=== PATIENT | male | born 1975 | race Caucasian/White ===

== ENCOUNTER 2016-05-26 11:47 | Emergency (ER) | payer OTHER ==
[~2016-05-26] VITALS: Ht 188 cm; Wt 115.0 kg
[~2016-05-26 11:47] MED LIST: DIAZ5 PO; DICL75 PO; HYDR-3533 PO; LORTA5 PO
[2016-05-26 11:50] VITALS: BP 107/70; PULSE 88; RESP 18; TEMP 97.6; O2SAT 97
[2016-05-26] MEDS ORDERED: SODIUM CHLOR 0.9% 1000 ML INJ 1,000 ML IV SCH (11:55)
[2016-05-26 11:56] VITALS: BP 116/74; PULSE 76; RESP 22; TEMP 97.9; O2SAT 97
[2016-05-26] MEDS ORDERED: ONDANSETRON HCL 4 MG/2 ML VIAL IVP ONE (12:00)
[2016-05-26] MEDS ORDERED: HYDROmorphone HCL PF 1 MG/ML VIAL IVS ONE (12:00)
[2016-05-26] MEDS ORDERED: SODIUM CHLORIDE 0.9% FLUSH 5 ML FLUSH IVF PRN (12:00)
[2016-05-26 12:01] VITALS: RESP 22; O2SAT 98
[2016-05-26 12:18] LABS: AUTOMATED NEUTROPHIL # 3.2 TH/MM3 (1.8-7.7); BASOPHIL % 0.4 % (0.0-2.0); EOSINOPHIL # 0.1 TH/MM3 (0-0.4); EOSINOPHIL % 1.4 % (0.0-4.0); HEMATOCRIT 40.2 % (39.0-51.0); HEMO FLAGS DIFF FINAL; LYMPH % 22.1 % (9.0-44.0); LYMPHOCYTE # 1.1 TH/MM3 (1.0-4.8); MEAN CELL VOLUME 90.2 FL (80.0-100.0); MEAN CORPUSCULAR HEMOGLOBIN 30.8 PG (27.0-34.0); MEAN CORPUSCULAR HGB CONC 34.2 % (32.0-36.0); MONO % 11.2 % (0.0-8.0); NEUT % 64.9 % (16.0-70.0); PLATELET COUNT 231 TH/MM3 (150-450); RED BLOOD COUNT 4.46 MIL/MM3 (4.50-5.90); RED CELL DISTRIBUTION WIDTH 14.3 % (11.6-17.2)
[2016-05-26 12:27] LABS: APTT (PATIENT) 25.1 SEC (24.3-30.1); PROTHROMBIN TIME - PATIENT 10.8 SEC (9.8-11.6)
[2016-05-26 12:30] LABS: ALT (GPT) 71 U/L (12-78); ANION GAP 8 MEQ/L (5-15); AST (GOT) 35 U/L (15-37); BICARBONATE 26.8 MEQ/L (21.0-32.0); BLOOD UREA NITROGEN 8 MG/DL (7-18); CHLORIDE 106 MEQ/L (98-107); GLOMERULAR FILTRATION RATE 98 ML/MIN (>89); POTASSIUM 3.9 MEQ/L (3.5-5.1); SODIUM (NA) 141 MEQ/L (136-145)
[2016-05-26] MEDS ORDERED: HYDROmorphone HCL PF 2 MG/ML VIAL IV PUSH ONE (12:30)
[2016-05-26 12:33] LABS: ALKALINE PHOSPHATASE 99 U/L (45-117); TOTAL BILIRUBIN ADULT 0.7 MG/DL (0.2-1.0)
--- NOTE | 2016-05-26 12:33 | RADRPT ---
EXAM DATE/TIME: 05/26/2016 12:22 [facility] COMPARISON: No previous studies available for comparison. INDICATIONS : Chest Pain after falling off of horse. MEDICAL HISTORY : None. SURGICAL HISTORY : None. ENCOUNTER: Initial ACUITY: 1 day PAIN SCORE: 10/10 LOCATION: Bilateral chest FINDINGS: A single view of the chest demonstrates the lungs to be symmetrically aerated without evidence of mas s, infiltrate or effusion. The cardiomediastinal contours are unremarkable. Osseous structures are intact. CONCLUSION: No acute abnormality demonstrated. Sukhjinder Jacob MD on May 26, 2016 at 12:31 Board Certified Radiologist. This report was verified electronically.
--- NOTE | 2016-05-26 12:35 | RADRPT ---
EXAM DATE/TIME: 05/26/2016 12:26 [facility] COMPARISON: CHEST PA & LAT, April 01, 2015, 6:05. INDICATIONS : Left Shoulder pain after falling off of horse. MEDICAL HISTORY : None. SURGICAL HISTORY : None. ENCOUNTER: Initial ACUITY: 1 day PAIN SCORE: 9/10 LOCATION: Left Shoulder. FINDINGS: There is about three quarters shaft width of elevation of the clavicle with respect to the acromion. This does appear to be new relative to the 2 view chest x-ray done back in 2015. No fracture demonstr ated. CONCLUSION: Mild acromioclavicular joint separation without fracture. Sukhjinder Jacob MD on May 26, 2016 at 12:32 Board Certified Radiologist. This report was verified electronically.
[2016-05-26] MEDS ORDERED: IOHEXOL 350 MG/ML 10 ML VIAL (for RAD DIAG) IV ONE (13:52)
[2016-05-26 13:55] VITALS: BP 113/71; PULSE 77; RESP 15; O2SAT 98
--- NOTE | 2016-05-26 13:56 | RADRPT ---
EXAM DATE/TIME: 05/26/2016 12:53 [facility] COMPARISON: CT BRAIN W/O CONTRAST, March 30, 2015, 22:31. INDICATIONS : Trauma; fall from horse, head and neck pain. RADIATION DOSE: 56.35 CTDIvol (mGy) MEDICAL HISTORY : None SURGICAL HISTORY : None. ENCOUNTER: Initial ACUITY: 1 day PAIN SCALE: 4/10 LOCATION: Bilateral cranial TECHNIQUE: Multiple contiguous axial images were obtained of the head. Using automated exposure control and adj ustment of the mA and/or kV according to patient size, radiation dose was kept as low as reasonably a chievable to obtain optimal diagnostic quality images. FINDINGS: CEREBRUM: The ventricles are normal for age. No evidence of midline shift, mass lesion, hemorrhage or acute in farction. No extra-axial fluid collections are seen. POSTERIOR FOSSA: The cerebellum and brainstem are intact. The 4th ventricle is midline. The cerebellopontine angle i s unremarkable. EXTRACRANIAL: The visualized portion of the orbits is intact. SKULL: The calvaria is intact. No evidence of skull fracture. CONCLUSION: No bleed or other acute intracranial abnormality. Sukhjinder Jacob MD on May 26, 2016 at 13:54 Board Certified Radiologist. This report was verified electronically.
--- NOTE | 2016-05-26 13:58 | RADRPT ---
EXAM DATE/TIME: 05/26/2016 13:01 [facility] COMPARISON: CT CERVICAL SPINE W/O CONTRAST, March 30, 2015, 22:31. INDICATIONS : Trauma; fell from horse, neck pain. RADIATION DOSE: 45.53 CTDIvol (mGy) MEDICAL HISTORY : None SURGICAL HISTORY : None. ENCOUNTER: Initial ACUITY: 1 day PAIN SCALE: 8/10 LOCATION: neck TECHNIQUE: Volumetric scanning of the cervical spine was performed. Multiplanar reconstructions in the sagittal, coronal and oblique axial planes were performed. Using automated exposure control and adjustment o f the mA and/or kV according to patient size, radiation dose was kept as low as reasonably achievable to obtain optimal diagnostic quality images. FINDINGS: Cervical spine alignment is normal. Vertebral bodies have normal height. No cortical break or trabecu lar disruption demonstrated. 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 Moderate disc space narrowing with uncovertebral and facet osteoarthritis again seen at C5/C6. CONCLUSION: No fracture or subluxation of the cervical spine. Sukhjinder Jacob MD on May 26, 2016 at 13:55 Board Certified Radiologist. This report was verified electronically.
--- NOTE | 2016-05-26 14:10 | RADRPT ---
EXAM DATE/TIME: 05/26/2016 13:08 [facility] COMPARISON: CT THORAX W CONTRAST, March 30, 2015, 22:41. INDICATIONS : Trauma; fell from horse. IV CONTRAST: 100 cc Omnipaque 350 (iohexol) IV ; Cumulative dose for multiple exams. RADIATION DOSE: 12.90 CTDIvol (mGy) ; Combined studies - Thorax/Abdomen/Pelvis MEDICAL HISTORY : None SURGICAL HISTORY : None. ENCOUNTER: Initial ACUITY: 1 day PAIN SCALE: 4/10 LOCATION: chest TECHNIQUE: Volumetric scanning of the chest was performed. Using automated exposure control and adjustment of t he mA and/or kV according to patient size, radiation dose was kept as low as reasonably achievable to obtain optimal diagnostic quality images. FINDINGS: LUNGS: There is no consolidation or pneumothorax. No concerning pulmonary nodule is visualized. PLEURA: There is no pleural thickening or pleural effusion. MEDIASTINUM: The heart and great vessels demonstrate no acute abnormality. There is no mediastinal or hilar lymph adenopathy. AXILLAE: Within normal limits. No lymphadenopathy. SKELETAL: Within normal limits for patient age. MISCELLANEOUS: The visualized upper abdominal organs demonstrate no acute abnormality. CONCLUSION: No acute abnormality demonstrated. Sukhjinder Jacob MD on May 26, 2016 at 14:07 Board Certified Radiologist. This report was verified electronically.
--- NOTE | 2016-05-26 14:25 | RADRPT ---
EXAM DATE/TIME: 05/26/2016 13:08 [facility] COMPARISON: CT ABDOMEN & PELVIS W CONTRAST, March 30, 2015, 22:41. INDICATIONS : Trauma; fall from horse. IV CONTRAST: 100 cc Omnipaque 350 (iohexol) IV ; Cumulative dose for multiple exams. ORAL CONTRAST: No oral contrast ingested. RADIATION DOSE: 12.90 CTDIvol (mGy) ; Combined studies - Thorax/Abdomen/Pelvis MEDICAL HISTORY : None SURGICAL HISTORY : None. ENCOUNTER: Initial ACUITY: 1 day PAIN SCALE: 0/10 LOCATION: abdomen. TECHNIQUE: Volumetric scanning of the abdomen and pelvis was performed. Using automated exposure control and ad justment of the mA and/or kV according to patient size, radiation dose was kept as low as reasonably achievable to obtain optimal diagnostic quality images. FINDINGS: LOWER LUNGS: The visualized lower lungs are clear. LIVER: Homogeneous density without lesion. There is no dilation of the biliary tree. No calcified gallston es. SPLEEN: Mildly enlarged at about 14 cm anterior to posterior. PANCREAS: Within normal limits. KIDNEYS: Normal in size and shape. There is no mass, stone or hydronephrosis. ADRENAL GLANDS: Within normal limits. VASCULAR: There is no aortic aneurysm. BOWEL/MESENTERY: The stomach, small bowel, and colon demonstrate no acute abnormality. There is no free intraperitone al air or fluid. ABDOMINAL WALL: Within normal limits. RETROPERITONEUM: There is no lymphadenopathy. BLADDER: No wall thickening or mass. REPRODUCTIVE: Within normal limits. INGUINAL: There is no lymphadenopathy or hernia. MUSCULOSKELETAL: Visualized osseous structures are intact. Stable benign bone island at the base of the lesser trochan ter of the right femur. CONCLUSION: No visceral organ injury or other acute abnormality. Sukhjinder Jacob MD on May 26, 2016 at 14:21 Board Certified Radiologist. This report was verified electronically.
--- NOTE | 2016-05-26 14:36 | RADRPT ---
EXAM DATE/TIME: 05/26/2016 13:08 [facility] COMPARISON: No previous studies available for comparison. INDICATIONS : Trauma; fall from horse. RADIATION DOSE: ; Reconstructed from previous dataset MEDICAL HISTORY : None SURGICAL HISTORY : None. ENCOUNTER: Initial ACUITY: 1 day PAIN SCALE: 7/10 LOCATION: spine. TECHNIQUE: Volumetric scanning of the thoracic spine was performed. Multiplanar reconstructions in the sagittal , coronal and oblique axial planes were performed. Using automated exposure control and adjustment o f the mA and/or kV according to patient size, radiation dose was kept as low as reasonably achievable to obtain optimal diagnostic quality images. FINDINGS: The vertebral bodies of the thoracic spine are in normal alignment without evidence of subluxation. Vertebral body height is maintained. No fractures are seen. Thoracic kyphosis is mildly exaggerated. T1-T2: Normal. T2-T3: The thecal sac has a normal diameter. No evidence of disc bulge or protrusion. T3-T4: Mild disc space narrowing anteriorly. T4-T5: Mild disc space narrowing anteriorly. T5-T6: Mild disc space narrowing anteriorly. T6-T7: The thecal sac has a normal diameter. No evidence of disc bulge or protrusion. T7-T8: The thecal sac has a normal diameter. No evidence of disc bulge or protrusion. T8-T9: The thecal sac has a normal diameter. No evidence of disc bulge or protrusion. T9-T10: The thecal sac has a normal diameter. No evidence of disc bulge or protrusion. Mild facet and costov ertebral degenerative changes. T10-T11: The thecal sac has a normal diameter. No evidence of disc bulge or protrusion. Mild facet and costov ertebral degenerative changes. T11-T12: The thecal sac has a normal diameter. No evidence of disc bulge or protrusion. Mild facet and costov ertebral degenerative changes. T12-L1: The thecal sac has a normal diameter. No evidence of disc bulge or protrusion. CONCLUSION: No fracture, subluxation or other acute abnormality. Mild degenerative changes with exaggeration of t he thoracic kyphosis. Sukhjinder Jacob MD on May 26, 2016 at 14:33 Board Certified Radiologist. This report was verified electronically.
--- NOTE | 2016-05-26 14:45 | RADRPT ---
EXAM DATE/TIME: 05/26/2016 13:08 [facility] COMPARISON: No previous studies available for comparison. INDICATIONS : Trauma; fall from horse, lower back pain. RADIATION DOSE: ; Reconstructed from previous dataset MEDICAL HISTORY : None SURGICAL HISTORY : None. ENCOUNTER: Initial ACUITY: 1 day PAIN SCALE: 6/10 LOCATION: lower back. TECHNIQUE: Volumetric scanning of the lumbar spine was performed. Multiplanar reconstructions in the sagittal, coronal and oblique axial planes were performed. Using automated exposure control and adjustment of the mA and/or kV according to patient size, radiation dose was kept as low as reasonably achievable t o obtain optimal diagnostic quality images. FINDINGS: Lumbar spinal alignment is normal. No fracture seen. Vertebral bodies have normal height. Mild disc space narrowing and a moderate-sized left paracentral disc protrusion present at L2/L3 whic h causes narrowing of the left lateral recess. Small, broad posterior disc osteophyte complexes at L4/L5 and L5/S1 with mild bilateral facet osteoar thritis and mild bilateral foraminal encroachment. CONCLUSION: 1. No fracture or subluxation of the lumbar spine. 2. Age-indeterminate left paracentral disc protrusion at L2/L3 probably impinging on the transiting l eft L3 nerve root. 3. Chronic appearing degenerative changes at other levels without significant foraminal or spinal karla nosis. Sukhjinder Jacob MD on May 26, 2016 at 14:39 Board Certified Radiologist. This report was verified electronically.
[2016-05-26] MEDS ORDERED: PERC10TA27 PO (15:07)
--- NOTE | 2016-05-26 15:07 | PD ---
HPI Chief Complaint: Fall Time Seen by Provider: 11:55 Travel History International Travel<30 days: No Contact w/Intl Traveler<30days: No Traveled to known affect area: No History of Present Illness HPI Patient 41-year-old male presents emergency department for evaluation of left shoulder pain as well as back pain and thoracic and lumbar regions which is quite excruciating after falling off a horse today. Patient states the horse reared and he fell backwards impacting his left shoulder and head. Patient's chief complaint is left shoulder pain. Denies any loss of consciousness. He states he thinks he hit his head as well. He is also been complaining of some pain in his abdomen which is mild and difficult for him to describe better. Denies any nausea vomiting diarrhea. Has not taken anything prior to arrival has been walking since the fall. Denies any focal weakness denies any saddle anesthesia. PFSH Past Medical History Arthritis: Yes (lower back, r shoulder) Cancer: No Cardiovascular Problems: No Endocrine: No Gastrointestinal Disorders: No Genitourinary: No Immune Disorder: No Implanted Vascular Access Dvce: Yes Musculoskeletal: Yes Neurologic: No Psychiatric: No Reproductive: No Respiratory: No Tetanus Vaccination: Never Vaccinated Influenza Vaccination: No Past Surgical History Body Medical Devices: wires in hand Other Surgery: Yes Social History Alcohol Use: Yes (OCC) Tobacco Use: No Substance Use: No Allergies-Medications (Allergen,Severity, Reaction): Coded Allergies: No Known Allergies (Unverified , 03/30/15) Reported Meds & Prescriptions Reported Meds & Active Scripts Active Phenergan (Promethazine HCl) 25 Mg Tab 25 Mg PO ONCE Percocet (Oxycodone-Acetaminophen) 10-325 mg Tab 1 Tab PO Q6H PRN Lortab 5 mg/325 mg (Hydrocodone/Acetaminophen 5 mg/325 mg) 1 Tab 1 Tab PO Q6H PRN Valium (Diazepam) 5 Mg Tab 5 Mg PO TID PRN Diclofenac Sodium Dr (Diclofenac Sod) 75 Mg Tab 75 Mg PO BID PRN Hydrocodone/Acetaminophen 5 mg/325 mg 1 Tab Tab 1 Tab PO Q4H PRN Review of Systems Except as stated in HPI: all other systems reviewed are Neg Physical Exam Narrative GENERAL: Well-developed well-nourished, appears quite painful. ABCs are intact. SKIN: Warm and dry. HEAD: Atraumatic. Normocephalic. EYES: Pupils equal and round. No scleral icterus. No injection or drainage. ENT: No nasal bleeding or discharge. Mucous membranes pink and moist. NECK: Trachea midline. No JVD. CARDIOVASCULAR: Regular rate and rhythm. No murmur appreciated. RESPIRATORY: No accessory muscle use. Clear to auscultation. Breath sounds equal bilaterally. GASTROINTESTINAL: Abdomen soft, non-tender, nondistended. Hepatic and splenic margins not palpable. MUSCULOSKELETAL: No obvious deformities. No clubbing. No cyanosis. No edema. Left upper extremity; patient has obvious tenting of the clavicle over the before meals joint and a probable high degree separation. Humerus is well seated in the glenoid fossa. No tenderness at the elbow, no tenderness of the wrists or hands. Full range of motion in the elbow wrist and hand. Pulses motor and sensory intact distally. Extremely limited range of motion of the left shoulder secondary to pain. No gross deformities of the humerus elbow forearm wrist or hand. Right upper extremity; no gross deformities there is no tenderness at the shoulder elbow wrist or hand. Pulses motor and sensory intact distally and full nontender range of motion. Lower extremities: no tenderness at the pelvis hips knees and ankles or feet. No gross deformities, pulses motor and sensory intact distal in both lower extremities bilateral equal.: Axial skeleton: No midline tenderness at CT or L-spine. Pelvis is stable. NEUROLOGICAL: Awake and alert. And oriented cranial nerves II through XII are grossly intact nonfocal, 5 out of 5 strength in all 4 extremities., PSYCHIATRIC: Appropriate mood and affect; insight and judgment normal. Data Data Last Documented VS Vital Signs Date Time Temp Pulse Resp B/P Pulse Ox O2 Delivery O2 Flow Rate FiO2 05/26/16 16:22 107/58 97 05/26/16 13:55 77 15 Room Air 05/26/16 11:56 97.9 Orders Shoulder, Limited(2vws) (05/26/16 ) Chest, Single Ap (05/26/16 ) Complete Blood Count With Diff (05/26/16 11:55) Comprehensive Metabolic Panel (05/26/16 11:55) Lipase (05/26/16 11:55) Prothrombin Time / Inr (Pt) (05/26/16 11:55) Act Partial Throm Time (Ptt) (05/26/16 11:55) Urinalysis - C+S If Indicated (05/26/16 11:55) Iv Access Insert/Monitor (05/26/16 11:55) Ecg Monitoring (05/26/16 11:55) Oximetry (05/26/16 11:55) Ondansetron Inj (Zofran Inj) (05/26/16 12:00) Sodium Chlor 0.9% 1000 Ml Inj (Ns 1000 M (05/26/16 11:55) Sodium Chloride 0.9% Flush (Ns Flush) (05/26/16 12:00) Hydromorphone Pf Inj (Dilaudid Pf Inj) (05/26/16 12:00) Ct Brain W/O Iv Contrast(Rout) (05/26/16 ) Ct Cerv Spine W/O Contrast (05/26/16 ) Ct Thorax/ Chest W Iv Contrast (05/26/16 ) Ct Abd/Pel W Iv Contrast(Rout) (05/26/16 ) Ct Lumb Spine W/O Contrast (05/26/16 ) Ct Thor Spine W/O Contrast (05/26/16 ) Hydromorphone Pf Inj (Dilaudid Pf Inj) (05/26/16 12:30) Apply Cervical Collar (05/26/16 12:26) Iohexol 350 Inj (Omnipaque 350 Inj) (05/26/16 13:52) Splint Or Brace Apply/Monitor (05/26/16 15:05) Oxycodone-Acetamin 10-325 Mg (Percocet 1 (05/26/16 15:45) Sling And Swathe (05/26/16 ) Labs Laboratory Tests Test 05/26/16 12:00 White Blood Count 5.0 TH/MM3 Red Blood Count 4.46 MIL/MM3 Hemoglobin 13.8 GM/DL Hematocrit 40.2 % Mean Corpuscular Volume 90.2 FL Mean Corpuscular Hemoglobin 30.8 PG Mean Corpuscular Hemoglobin 34.2 % Concent Red Cell Distribution Width 14.3 % Platelet Count 231 TH/MM3 Mean Platelet Volume 6.8 FL Neutrophils (%) (Auto) 64.9 % Lymphocytes (%) (Auto) 22.1 % Monocytes (%) (Auto) 11.2 % Eosinophils (%) (Auto) 1.4 % Basophils (%) (Auto) 0.4 % Neutrophils # (Auto) 3.2 TH/MM3 Lymphocytes # (Auto) 1.1 TH/MM3 Monocytes # (Auto) 0.6 TH/MM3 Eosinophils # (Auto) 0.1 TH/MM3 Basophils # (Auto) 0.0 TH/MM3 CBC Comment DIFF FINAL Differential Comment Prothrombin Time 10.8 SEC Prothromb Time International 1.0 RATIO Ratio Activated Partial 25.1 SEC Thromboplast Time Sodium Level 141 MEQ/L Potassium Level 3.9 MEQ/L Chloride Level 106 MEQ/L Carbon Dioxide Level 26.8 MEQ/L Anion Gap 8 MEQ/L Blood Urea Nitrogen 8 MG/DL Creatinine 0.86 MG/DL Estimat Glomerular Filtration 98 ML/MIN Rate Random Glucose 93 MG/DL Calcium Level 8.9 MG/DL Total Bilirubin 0.7 MG/DL Aspartate Amino Transf 35 U/L (AST/SGOT) Alanine Aminotransferase 71 U/L (ALT/SGPT) Alkaline Phosphatase 99 U/L Total Protein 7.2 GM/DL Albumin 3.8 GM/DL Lipase 119 U/L MDM Medical Decision Making Medical Screen Exam Complete: Yes Emergency Medical Condition: Yes Differential Diagnosis Before meals separation, C-spine fracture, T-spine fracture, L-spine fracture, intrathoracic injury, intra-abdominal injury. Closed head injury. Narrative Course Patient 41-year-old male presents emergency department for evaluation of left shoulder pain. He clearly has distracting injury which is his before meals separation. He was placed in cervical collar on arrival. Indications for head and C-spine are or obvious. Patient also has some vague complaints of pain when taking a deep breath as well as abdominal pain. The remainder of the nielsen scan is therefore indicated. He appears quite uncomfortable is given a total of 3,000,000 g of Dilaudid IV which significantly controlled his pain. CTs were obtained of his head C-spine chest abdomen pelvis as well as his T and L- spine. 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 Patient's labs are reassuring. His pain is better controlled and he is stable for discharge. He was placed in a sling. Discussed need follow-up with an orthopedic surgeon as he will likely require surgery's I appreciate very high grade before meals separation. Discussed with him return to ED criteria. Diagnosis Primary Impression: Separation of left acromioclavicular joint Qualified Code: S43.102A - Separation of left acromioclavicular joint, initial encounter Referrals: Travon Polk MD Med/Other Pt SpecificInfo: Prescription(s) given Scripts Promethazine (Phenergan)25 Mg Tab25 Mg PO ONCE #1 TAB Ref 0 Prov:Germain Phillips MD 05/26/16 Oxycodone-Acetaminophen (Percocet)10-325 mg Tab1 Tab PO Q6H PRN (PAIN) #20 TAB Ref 0 Prov:Germain Phillips MD 05/26/16 Disposition: 01 DISCHARGE HOME Condition: Stable Germain Phillips MD May 26, 2016 15:07
[2016-05-26] MEDS ORDERED: PROM25TA5 PO (15:15)
[2016-05-26] MEDS ORDERED: oxyCODONE/ACETAMINOPHEN 10 MG/325 MG TAB PO ONE (15:45)
[2016-05-26 16:22] VITALS: BP 107/58
== END 2016-05-26 16:12 | disposition home or self-care (01) ==
LOC: NEPA 11:47
DX: S43.102A Unspecified dislocation of left acromioclavicular joint, initial encounter (principal); V80.010A Animal-rider injured by fall from or being thrown from horse in noncollision accident, initial encounter; Y93.52 Activity, horseback riding; Y92.9 Unspecified place or not applicable
CPT/HCPCS: 70450; 71010; 71260; 72125; 72128; 72131; 73030; 74177; 80053; 83690; 85025; 85610; 85730; 96361; 96374; 96375; 99284; J1170; J2405; J7030; Q9967

== ENCOUNTER 2016-05-28 14:42 | Emergency (ER) | payer OTHER ==
[~2016-05-28] VITALS: Ht 188 cm; Wt 120.0 kg
[~2016-05-28 14:42] MED LIST changes: +PERC10TA27 PO; +PROM25TA5 PO
[2016-05-28 14:48] VITALS: BP 142/84; PULSE 88; RESP 18; TEMP 97.6; O2SAT 97
--- NOTE | 2016-05-28 15:13 | PD ---
HPI . possible pneumothorax Chief Complaint: Respiratory Symptoms Time Seen by Provider: 15:13 Travel History International Travel<30 days: No Contact w/Intl Traveler<30days: No Traveled to known affect area: No History of Present Illness HPI 41-year-old male who was seen 2 days ago status post falling off a horse. Patient was diagnosed with a left AC separation and was scheduled to follow with orthopedic. He was supposed to have surgery, but was told that he has a possible pneumothorax on imaging. Patient is here today complaining of some mild difficulty breathing. He also reports left chest pain extending into his arm. He says the pain is worse with movement. He denies any nausea, vomiting or diaphoresis. He was sent by orthopedic for rule out of pneumothorax. He is accompanied by his and son. PFSH Past Medical History Arthritis: Yes (lower back, r shoulder) Cancer: No Cardiovascular Problems: No Endocrine: No Gastrointestinal Disorders: No Genitourinary: No Immune Disorder: No Implanted Vascular Access Dvce: Yes Musculoskeletal: Yes Neurologic: No Psychiatric: No Reproductive: No Respiratory: No Influenza Vaccination: No Past Surgical History Body Medical Devices: wires in hand Other Surgery: Yes Social History Alcohol Use: Yes ([facility]) Tobacco Use: No Substance Use: No Allergies-Medications (Allergen,Severity, Reaction): Coded Allergies: No Known Allergies (Unverified , 05/28/16) Reported Meds & Prescriptions Reported Meds & Active Scripts Active Phenergan (Promethazine HCl) 25 Mg Tab 25 Mg PO ONCE Percocet (Oxycodone-Acetaminophen) 10-325 mg Tab 1 Tab PO Q6H PRN Review of Systems General / Constitutional: No: Fever Eyes: No: Visual changes HENT: No: Headaches Cardiovascular: No: Chest Pain or Discomfort Respiratory: No: Shortness of Breath Gastrointestinal: No: Abdominal Pain Genitourinary: No: Dysuria Musculoskeletal: Positive: Pain (left shoulder) Skin: No Rash Neurologic: No: Weakness Psychiatric: No: Depression Endocrine: No: Polydipsia Hematologic/Lymphatic: No: Easy Bruising Physical Exam Narrative GENERAL: AAO x 3, no acute distress, Well-nourished, well-developed patient. SKIN: Warm and dry. No visible rashes or bruising. HEAD: Normocephalic and atraumatic. EYES: No scleral icterus. No injection or drainage. EOM intact, PERRLA ENT: No nasal drainage noted. Mucous membranes pink. Airway patent. NECK: Supple, trachea midline. No JVD. CARDIOVASCULAR: Regular rate and rhythm without murmurs, gallops, or rubs. RESPIRATORY: Breath sounds equal bilaterally. No accessory muscle use. No rhonchi or rales. GASTROINTESTINAL: Abdomen soft, non-tender, nondistended. EXTREMITIES: No cyanosis or edema. Left shoulder wrapped and in sling. BACK: Nontender without obvious deformity. No CVA tenderness. PSYCH: AAO x 3, normal affect. Data Data Last Documented VS Vital Signs Date Time Temp Pulse Resp B/P Pulse Ox O2 Delivery O2 Flow Rate FiO2 05/28/16 14:48 97.6 88 18 142/84 97 Orders Electrocardiogram (05/28/16 15:16) Chest, Single Ap (05/28/16 15:16) Tramadol (Ultram) (05/28/16 15:45) Chest, Expiration Only (05/28/16 ) Morphine Inj (Morphine Inj) (05/28/16 16:30) MDM Medical Decision Making Medical Screen Exam Complete: Yes Emergency Medical Condition: Yes Medical Record Reviewed: Yes Differential Diagnosis pneumothorax, worsening pain from AC joint separation, less likely ACS Narrative Course 41-year-old male who was seen 2 days ago status post falling off a horse. Patient was diagnosed with a left AC separation and was scheduled to follow with orthopedic. He was supposed to have surgery, but was told that he has a possible pneumothorax on imaging. Patient is here today complaining of some mild difficulty breathing. He also reports left chest pain extending into his arm. He says the pain is worse with movement. He denies any nausea, vomiting or diaphoresis. He was sent by orthopedic for rule out of pneumothorax. He is accompanied by his and son. Patient seen and examined. Case discussed with Dr. Carroll. Recommend CXR and EKG. CXR negative for pneumothorax. Pending results, we will make further recommendations. Discussed no pneumothorax seen. Advised to f/u with ortho. Patient verbalized understanding of instructions, questions were answered, and thanked me for their care. I advised them if their condition worsens, please return to the nearest emergency room for further care. Diagnosis Primary Impression: Separation of left acromioclavicular joint Qualified Code: S43.102D - Separation of left acromioclavicular joint, subsequent encounter Patient Instructions: General Instructions Additional Instructions: Please return to emergency department if your symptoms return or worsen. Follow up with your primary care provider. Follow up with orthopedic. Take medications as prescribed. Med/Other Pt SpecificInfo: No Change to Meds Disposition: 01 DISCHARGE HOME Condition: Stable Sybil Prieto May 28, 2016 15:13
[2016-05-28] MEDS ORDERED: traMADol HCL 50 MG TAB PO ONE (15:45)
--- NOTE | 2016-05-28 15:49 | RADRPT ---
EXAM DATE/TIME: 05/28/2016 15:28 [facility] COMPARISON: No previous studies available for comparison. INDICATIONS : Short of breath, thrown from a horse 2 days ago. MEDICAL HISTORY : None. SURGICAL HISTORY : None. ENCOUNTER: Subsequent ACUITY: 2 days PAIN SCORE: 8/10 LOCATION: Bilateral chest FINDINGS: A single view of the chest demonstrates the lungs to be symmetrically aerated without evidence of mas s, infiltrate or effusion. The cardiomediastinal contours are unremarkable. Osseous structures are intact. CONCLUSION: Normal examination. Bryant Reilly MD on May 28, 2016 at 15:47 Board Certified Radiologist. This report was verified electronically.
[2016-05-28] MEDS ORDERED: MORPHINE SULFATE 8 MG/ML INJ SQ ONE (16:30)
--- NOTE | 2016-05-28 16:45 | RADRPT ---
EXAM DATE/TIME: 05/28/2016 16:36 [facility] COMPARISON: CHEST SINGLE AP, May 28, 2016, 15:28. INDICATIONS : Short of breath and evaluate for pneumothorax MEDICAL HISTORY : Mild acromioclavicular joint separation SURGICAL HISTORY : None. ENCOUNTER: Initial ACUITY: 1 day PAIN SCORE: 10/10 LOCATION: Bilateral chest FINDINGS: A single frontal expiratory view of the chest was performed. The lungs are symmetrically aerated and clear. No evidence of pneumothorax. Mediastinal structures are in the midline. The cardio-mediastinal contours and bronchopulmonary markings are unremarkable for an expiratory exam . Osseous structures are intact. CONCLUSION: Normal examination. Bryant Reilly MD on May 28, 2016 at 16:43 Board Certified Radiologist. This report was verified electronically.
--- NOTE | 2016-05-28 16:48 | PD ---
Data Data Last Documented VS Vital Signs Date Time Temp Pulse Resp B/P Pulse Ox O2 Delivery O2 Flow Rate FiO2 05/28/16 14:48 97.6 88 18 142/84 97 Orders Electrocardiogram (05/28/16 15:16) Chest, Single Ap (05/28/16 15:16) Tramadol (Ultram) (05/28/16 15:45) Chest, Expiration Only (05/28/16 ) Morphine Inj (Morphine Inj) (05/28/16 16:30) MDM Supervised Visit with ANTON: Yes Narrative Course The history, exam, and medical decision-making in the associated mid-level provider note were completed with my assistance. I reviewed and agree with the findings presented. I attest that I had a [id number] encounter with the patient on the same day, and personally performed and documented my assessment and findings in the medical record. *My assessment and Findings: 41-year-old man recent fall from a horse a known left before meals joint separation sent in from his orthopedic doctor's office for concern for an apical left pneumothorax. I spoke to Dr. Jones on the phone. That is on apical pneumothoraces and a chest film. I don't really see anything on the films from his office when I reviewed them. Inspiratory and expiratory views here were negative. Recommend outpatient follow-up. Diagnosis Primary Impression: Separation of left acromioclavicular joint Qualified Code: S43.102D - Separation of left acromioclavicular joint, subsequent encounter Additional Instruction: Please return to emergency department if your symptoms return or worsen. Follow up with your primary care provider. Follow up with orthopedic. Take medications as prescribed. Disposition: 01 DISCHARGE HOME Condition: Stable Bryant Carroll MD May 28, 2016 16:48
--- NOTE | 2016-05-29 11:06 | EKG ---
Date Performed: 05/28/2016 Time Performed: 16:06:00 PTAGE: 41 years EKG: Sinus rhythm NORMAL ECG PREVIOUS TRACING : 03/30/2015 21.30 DOCTOR: Bryant Rowland Interpretating Date/Time 05/29/2016 11:05:51
== END 2016-05-28 17:07 | disposition home or self-care (01) ==
LOC: NEPC 14:42
DX: S43.102D Unspecified dislocation of left acromioclavicular joint, subsequent encounter (principal); V80.010A Animal-rider injured by fall from or being thrown from horse in noncollision accident, initial encounter; Y93.52 Activity, horseback riding
CPT/HCPCS: 71010; 93005; 96372; 99283; J2270